=== PATIENT | male | born 1960 | race Caucasian/White ===

== ENCOUNTER 2021-06-27 07:11 | Day surgery (SDC) | payer OTHER ==
[~2021-06-27] VITALS: Ht 167.6 cm; Wt 74.0 kg
[~2021-06-27 07:11] MED LIST: SODIUM CHLORIDE 0.9% 1,000 ML IV ONE; SODIUM CHLORIDE 0.9% 1,000 ML ONE
[2021-06-27] MEDS ORDERED: ATOR40TA71 PO (07:51)
[2021-06-27] MEDS ORDERED: METF-446 PO (07:51)
[2021-06-27 08:05] LABS: COVID AG,FIA SOURCE NASOPHARYNGEAL
[2021-06-27 08:26] LABS: GLUCOMETER DEV NAME(LOC) SDS.; GLUCOSE,POINT OF CARE 104 MG/DL (70-110)
[2021-06-27] MEDS ORDERED: PROPOFOL 1% 20 ML VIAL IVP ONE (12:00)
[2021-06-27] MEDS ORDERED: LIDOCAINE/PF 2% 5 ML VIAL IM ONE (12:00)
== END 2021-06-27 11:50 | disposition home or self-care (01) ==
LOC: SURGERY 07:11
PROVIDERS: ATTEND Internal Medicine Gastroenterology
DX: Z12.11 Encounter for screening for malignant neoplasm of colon (principal); K62.1 Rectal polyp; K63.5 Polyp of colon; G89.29 Other chronic pain; E11.9 Type 2 diabetes mellitus without complications; M54.59 Other low back pain; K64.0 First degree hemorrhoids; E78.00 Pure hypercholesterolemia, unspecified; K57.30 Diverticulosis of large intestine without perforation or abscess without bleeding; Z79.899 Other long term (current) drug therapy
CPT/HCPCS: 45380; 45385; 82962; 87426; 88305; C9803; J2704; J3490; J7030